=== PATIENT | female | born 1955 | race American Indian/Alaskan Native ===

== ENCOUNTER 2019-01-23 20:42 | Emergency (ER) | payer MEDICARE ==
--- NOTE | 2019-01-23 22:04 | Emergency Department Report ---
<KEM JEFFREY - Last Filed: 01/23/19 23:54> ED General Adult HPI - General Chief complaint: Seizure Stated complaint: SEIZURE Time Seen by Provider: 01/23/19 22:02 Source: patient, family, EMS ( EMS documentation not available at time of chart dictation ), RN notes reviewed Mode of arrival: Stretcher Limitations: Altered Mental Status, Other (patient is is altered versus postictal. The patient is not behaving as expected as per family.) - History of Present Illness Initial comments: This is a 64-year-old female. The patient is not known to this provider previously. She reportedly has a history of seizure and hypertension. She takes Keppra 1000 mg. Her family is not sure of the frequency of her doses. As per her son, her last seizure was last year. Apparently, the patient was in a car, and began to pack puller, because "she thought she was going to have a seizure." Apparently, at one point in the car, she began screaming. There may have been some convulsive activity. In the emergency room, the patient is awake. She denies physical pain. The patient will follow some, but not all commands. Her [id number] is at the bedside and it does not feel the patient is at her mental status baseline. Family indicates that they think the patient has been compliant with her medications. -: Sudden Improves with: none Worsens with: none - Related Data Previous Rx's Medication Instructions Recorded Last Taken Type levETIRAcetam [Keppra TAB] 1,000 mg PO BID #60 tab 01/23/19 Unknown Rx Allergies Allergy/AdvReac Type Severity Reaction Status Date / Time No Known Allergies Allergy Unverified 01/24/19 00:02 ED Review of Systems Constitutional: denies: fever Eyes: denies: eye discharge ENT: denies: congestion Respiratory: denies: wheezing Cardiovascular: denies: chest pain, syncope Gastrointestinal: denies: abdominal pain Genitourinary: denies: dysuria Musculoskeletal: denies: back pain Neurological: confusion. denies: headache Hematological/Lymphatic: denies: easy bleeding ED Past Medical Hx - Medications Home Medications: Home Medications Medication Instructions Recorded Confirmed Last Taken Type levETIRAcetam [Keppra TAB] 1,000 mg PO BID #60 tab 01/23/19 Unknown Rx ED Physical Exam - General Limitations: Altered Mental Status, Other (patient acting inappropriately. When asked a question, the patient will be yawn, examine her nails. The patient will answer that she has no pain. However, she will follow some, but not all commands.) General appearance: alert, in no apparent distress - Head Head exam: Present: atraumatic, normocephalic - Eye Eye exam: Present: normal appearance, EOMI, other (visual acuity intact to finger counting in color perception at a close distance). Absent: nystagmus - ENT ENT exam: Present: normal exam, normal orophraynx, mucous membranes moist, normal external ear exam - Neck Neck exam: Present: normal inspection, full ROM. Absent: tenderness, meningismus - Respiratory Respiratory exam: Present: normal lung sounds bilaterally. Absent: respiratory distress - Cardiovascular Cardiovascular Exam: Present: regular rate, normal rhythm, normal heart sounds. Absent: bradycardia, tachycardia, irregular rhythm, systolic murmur, diastolic murmur, rubs, gallop - GI/Abdominal GI/Abdominal exam: Present: soft. Absent: distended, tenderness, guarding, rebound, rigid, pulsatile mass - Extremities Exam Extremities exam: Present: normal inspection, full ROM, other (2+ pulses noted in the bilateral upper, lower extremities. There is no long bone tenderness. Musculoskeletal compartments are soft. The pelvis is stable.). Absent: pedal e [place], joint swelling, calf tenderness - Back Exam Back exam: Present: normal inspection, full ROM. Absent: tenderness, CVA tenderness (R), CVA tenderness (L), paraspinal tenderness, vertebral tenderness - Neurological Exam Neurological exam: Present: alert, other (there is no facial droop. Extraocular movements are intact bilaterally. The tongue is midline. There is 5/5 strength bilateral upper, lower extremities. Sensation is intact to light touch bilateral upper, lower extremities.) - Psychiatric Psychiatric exam: Present: flat affect - Skin Skin exam: Present: warm, dry, intact, normal color. Absent: rash ED Course - Reevaluation(s) Reevaluation #1: 01/23/19 22:59 Original diagnosis, including but not limited to: Seizure, pseudoseizure, postictal state, conversion disorder, intracranial lesion, urinary tract infection Assessment and plan: 64-year-old female status post possible convulsive event. The patient is afebrile with reassuring vital signs. She moves 4 extremities without difficulty, and there is no neck pain or neck stiffness. The patient is displaying intermittent inappropriate behavior. Family states that this is not her baseline. We have recommended screening laboratory studies, EKG, urinalysis, and noncontrast CT scan of the brain. We will reassess after her data points have resulted. We will load the patient with antiepileptic drug medication. Reevaluation #2: 01/23/19 23:51 No further convulsive events noted. Awaiting laboratory studies, EKGs, CT scan of the brain, urinalysis. Care will be transferred to the oncoming/overnight physician, Dr. Tan, to follow-up on the aforementioned, and to reassess. Also to follow-up on patient's mental status. ED Medical Decision Making - Lab Data Result diagrams: 01/23/19 23:18 - EKG Data -: EKG Interpreted by [facility] EKG shows normal: sinus rhythm Rate: normal - EKG Data 01/23/19 23:00 This is a normal sinus, 70 bpm, left axis deviation, left anterior fascicular block, is poor R-wave progression, the QTC is within normal limits, the EKG is abnormal, the EKG is not consistent with ST elevation myocardial infarction. There is no prior for comparison. - Radiology Data Radiology results: pending ED Disposition Clinical Impression: History of convulsions Cocaine intoxication Qualifiers: Complication of substance-induced condition: with delirium Qualified Code(s): F14.921 - Cocaine use, unspecified with intoxication delirium Disposition: TO HOME OR SELFCARE Condition: Stable Additional Instructions: Do not drive or operate motor vehicles for the next 6 months. Take the seizure medication as directed. Follow-up with the primary care doctor or neurology doctor within the next 7-10 days. Return to the emergency room right away with projectile vomiting, change in mental status, confusion, inability to tolerate liquid feeds, new, worsening or different symptoms not present on the initial emergency room evaluation. Prescriptions: levETIRAcetam [Keppra TAB] 1,000 mg PO BID #60 tab Referrals: GINO CONNOLLY MD [Staff Physician] - 3-5 Days KEATON NY MD [Staff Physician] - 3-5 Days KIANA HOLDER MD [Referring] - 3-5 Days [facility] [Provider Group] - 3-5 Days <ZURI TAN - Last Filed: 01/24/19 04:18> ED Review of Systems ROS: Stated complaint: SEIZURE Other details as noted in HPI ED Course Vital Signs 01/23/19 21:50 Pulse Rate 90 Respiratory 18 Rate Blood Pressure 128/61 Blood Pressure 128/61 [Right] O2 Sat by Pulse 97 Oximetry - Reevaluation(s) Reevaluation #3: 01/24/19 04:16 Were able to separate the patient from her family and the patient was able to rest and took a nap. We'll do patient up at this time and the patient was able to hold a light conversation with me. She stated that she did remember her seizure medications name however she knew that she took it twice a day. Patient states she was in no distress and she felt fine at this time. The patient's laboratory studies show that her urine drug screen is positive for cocaine which possibly explains the patient's abnormal behavior. ED Medical Decision Making - Lab Data Result diagrams: 01/23/19 23:18 01/23/19 23:18 Critical care attestation.: If time is entered above; I have spent that time in minutes in the direct care of this critically ill patient, excluding procedure time. ED Disposition Is pt being admited?: No Time of Disposition: 04:17
[2019-01-23] MEDS ORDERED: KEPPRA 1,000 MG/NS 0.75% 100ML 1,000 MG/100 ML BAG IV ONE (22:55)
[2019-01-23 23:48] LABS: Hematocrit 41.9 % (30.3-42.9); Hemoglobin 13.8 gm/dl (10.1-14.3); Mean Corpuscular HGB Conc 33 % (30-34); Mean Corpuscular Volume 92 fl (79-97); Platelet Count 178 K/mm3 (140-440); Red Blood Count 4.58 M/mm3 (3.65-5.03); Red Cell Distribution Width 14.7 % (13.2-15.2)
--- NOTE | 2019-01-24 00:04 | Cat Scan Report ---
CT head/brain wo con INDICATION / CLINICAL INFORMATION: 64 years Female; MAIN: Seizure, AMS. TECHNIQUE: Routine CT head without contrast. All CT scans at this location are performed using CT dos e reduction for ALARA by means of automated exposure control. COMPARISON: None. FINDINGS: BRAIN / INTRACRANIAL CONTENTS: Areas of decreased attenuation seen in the gangliocapsular regions lizbeth aterally. Acute/subacute areas of ischemia cannot entirely be excluded. Anterior corpus striatal zayra on on the right may be the most prominent. Otherwise, no acute hemorrhage, mass effect, midline shift, hydrocephalus, or acute, large territoria l infarct. No chronic infarct or focal atrophy. Normal brain volume and ventricular/sulcal size for a ge. There are mild areas of decreased attenuation in the white matter of the cerebral hemispheres, as wel l as the gangliocapsular regions. These are nonspecific findings and may be related to microangiopath y (hypertension, diabetes, atherosclerosis), given the patient's age. CRANIOCERVICAL JUNCTION: No significant abnormality. ORBITS: No significant abnormality of visualized orbits. SINUSES / MASTOIDS: No significant abnormality the visualized paranasal sinuses or mastoid air cells. ADDITIONAL FINDINGS: None. IMPRESSION: 1. No focal mass, hemorrhage, hydrocephalus, or acute, large territorial infarct. Follow-up with diff usion imaging by MRI, as clinically warranted. Signer Name: Jose Nielson MD, III Signed: 01/23/2019 11:59 PM Workstation Name: [email or web address] CENTERPadma
[2019-01-24 00:19] LABS: Alanine Aminotransferase 10 units/L (7-56); Albumin 4.4 g/dL (3.9-5); BUN/Creatinine Ratio 11; Blood Urea Nitrogen 9 mg/dL (7-17); Calcium 9.5 mg/dL (8.4-10.2); Hemolysis Index 5
[2019-01-24 02:06] LABS: Bilirubin,Urine NEG (Negative); Blood,Urine NEG (Negative); Color,Urine Straw (Yellow); Mucus,Urine FEW /HPF; Protein,Urine <15 mg/dL mg/dL (Negative); Urobilinogen,Urine < 2.0 mg/dL (<2.0); WBC,Urine < 1.0 /HPF (0.0-6.0)
[2019-01-24 02:16] LABS: Amphetamine Screen,Urine PRESUMPTIVE NEGATIVE; Benzodiazepines Screen,Urine PRESUMPTIVE NEGATIVE; Cannabinoid Screen,Urine PRESUMPTIVE NEGATIVE; Methadone Screen,Urine PRESUMPTIVE NEGATIVE; Opiate Screen,Urine PRESUMPTIVE NEGATIVE
[2019-01-24 02:32] LABS: Cocaine Screen,Urine PRESUMPTIVE POSITIVE
[2019-01-24 07:21] VITALS: BP 167/69
== END 2019-01-24 07:15 | disposition home or self-care (01) ==
LOC: ED 20:42
DX: R56.9 Unspecified convulsions (principal); F14.921 Cocaine use, unspecified with intoxication delirium
CPT/HCPCS: 36415; 70450; 80053; 80164; 80185; 80307; 81001; 82550; 82962; 83735; 85027; 93005; 93010; 96374; 99285; J1953; 80320; G0480